=== PATIENT | female | born 1955 | race Caucasian/White ===

== ENCOUNTER → 2017-12-19 | Outpatient (CLI) | payer OTHER | END | disposition home or self-care (01) | LOC: RAH 12:59 | PROVIDERS: ATTEND Physical Medicine & Rehabilitation | DX: M47.894 Other spondylosis, thoracic region (principal); M51.24 Other intervertebral disc displacement, thoracic region | CPT/HCPCS: 72146 ==

== ENCOUNTER → 2019-03-21 | Outpatient (CLI) | payer OTHER ==
[~2019-03-21] MED LIST: GADODIAMIDE 5 MMOL/10 ML VIAL 5 MMOL/10 ML VIAL IV ONE; IOPAMIDOL 10 ML VIAL ONE
== END | disposition home or self-care (01) ==
LOC: RAH 12:50
PROVIDERS: ATTEND Physical Medicine & Rehabilitation
DX: S79.812A Other specified injuries of left hip, initial encounter (principal); X58.XXXA Exposure to other specified factors, initial encounter; Y93.89 Activity, other specified; Y92.89 Other specified places as the place of occurrence of the external cause; Y99.8 Other external cause status
CPT/HCPCS: 73721; A9579

== ENCOUNTER → 2019-10-17 | Outpatient (CLI) | payer OTHER | END | disposition home or self-care (01) | LOC: RAH 15:00 | PROVIDERS: ATTEND Physical Medicine & Rehabilitation | DX: M25.552 Pain in left hip (principal) | CPT/HCPCS: 73721 ==

== ENCOUNTER → 2020-07-23 | Outpatient (CLI) | payer OTHER | END | disposition home or self-care (01) | LOC: OIH 10:04 | PROVIDERS: ATTEND Physical Medicine & Rehabilitation | DX: M25.511 Pain in right shoulder (principal) | CPT/HCPCS: 73030 ==

== ENCOUNTER → 2020-07-25 | Outpatient (CLI) | payer OTHER | END | disposition home or self-care (01) | LOC: RAH 08:47 | PROVIDERS: ATTEND Physical Medicine & Rehabilitation | DX: M19.011 Primary osteoarthritis, right shoulder (principal) | CPT/HCPCS: 73221 ==